=== PATIENT | male | born 1995 | race Caucasian/White ===

== ENCOUNTER → 2017-04-22 | Outpatient (CLI) | payer BC ==
--- NOTE | 2017-04-22 16:00 | CT ---
HISTORY: Gross hematuria Study: CT abdomen and pelvis without contrast Comparison: None Technique: Multiple axial images of the abdomen and pelvis were obtained from the lung bases to the pubic symphy sis without the administration of IV contrast. Sagittal and coronal reformations were provided. Findings: The visualized portions of the lung bases are unremarkable. The liver, spleen, pancreas, kidneys, an d adrenal glands are unremarkable in their CT appearance. The gallbladder is unremarkable in its CT a ppearance. No significant mesenteric lymphadenopathy or stranding can be observed. No free fluid or free air is seen within the abdomen. The appendix is normal. No bowel wall thickening or bowel dila tation is present. The colon is unremarkable. Specifically, there is no diverticulosis noted within the sigmoid colon. The urinary bladder is grossly unremarkable. The bony structures are grossly int act. IMPRESSION: 1. Negative CT of the abdomen and pelvis. Reported By:
== END | disposition home or self-care (01) ==
LOC: RAD 13:12
PROVIDERS: ATTEND Internal Medicine
DX: R31.0 Gross hematuria (principal)
CPT/HCPCS: 74176

== ENCOUNTER 2017-07-10 22:51 | Emergency (ER) | payer BC ==
[2017-07-10 22:56] VITALS: BP 158/88; BMI 25.0
--- NOTE | 2017-07-10 23:46 | RAD ---
Two views of the neck soft tissues Indication: Concern for state in throat Findings: No radiopaque foreign body identified within the prevertebral soft tissues. Hypopharynx dem onstrates no abnormality. The epiglottis is normal. There is no acute osseous abnormality or malalign ment cervical spine. Impression: No radiographic abnormality within the neck soft tissues. Specifically, no radiopaque for eign body identified within the neck. Reported By:
--- NOTE | 2017-07-10 23:48 | DR.GENAD ---
HPI - PCP Primary Care Physician: yamila de leon - HPI Comment HPI Comment: HISTORY BELOW. - Complaint/Symptoms Chief Complaint Doctors Comments: PATIENT FELT PIECE OF STEAK STUCK IN HIS ESOPHAGUS ST DINNER TONIGHT. TRY COUGHING IT OFF, MAY HAVE GONE DOWN WHILE IN HIS ROOM HERE AT THE ED. THROAT SORE. Chief Complaint:: pt states" i think i have some steak hung in my throat" - Nurses notes reviewed Nurses Notes Review: Yes - Source History Provided: Patient - Mode of Arrival Mode of Arrival: Ambulatory - Timing Onset of Chief Complaint: 07/10/17 Came on: Suddenly - Duration Duration: Constant Duration: Hours - Severity Severity: Moderate PMH - PMH Past Medical History: No Past Surgical History: No - Family History History of Family Medical Conditions: No - Social History Does any household member use tobacco: No Alcohol Use: None Do you use any recreational Drugs:: No Lives With: Family Lives Where: Home - infectious screening In the last 2 months have you had wt loss of >10#?: NO Have you had fever, night sweats or hemotysis?: No Have you traveled outside the country in the last 6 months?: No Isolation: Standard ROS - Review of Systems Constitutional: No Symptoms Reported Eyes: No Symptoms Reported ENTM: No Symptoms Reported, Throat Pain (FB ESOPHAGUS) Respiratoy: Non-Productive Cough Cardiovascular: No Symptoms Reported. negative: Chest Pain Gastrointestinal/Abdominal: No Symptoms Reported Genitourinary: No Symptoms Reported Neurological: No Symptoms Reported Musculoskeletal: No Symptoms Reported Integumentary: No Symptoms Reported Hematologic/Lymphatic: No Symptoms Reported Endocrine: No Symptoms Reported All Other Systems: Reviewed and Negative PE - Vital Signs Vitals: Temperature 98.2 F Pulse Rate 75 Respiratory Rate 18 Blood Pressure 158/88 O2 Sat by Pulse Oximetry 96 - General Limitations: No Limitations General Appearance: Alert - Head Head Exam: Normal Inspection - Eyes Eye exam: Normal Appearance - ENT ENT Exam: Normal External Ear Exam External Ear Exam: Normal External Inspection TM/Canal Exam: Bilateral Normal Nose Exam: Normal Nose Exam Mouth Exam: Normal Inspection Throat Exam: Normal Inspection - Neck Neck Exam: Normal Inspection - Chest Chest Inspection: Symmetric Chest Wall Rise - Respiratory Respiratory Exam: Normal Lung Sounds Bilat Respiratory Exam: Bilateral Clear to Auscultation - Cardiovascular Cardiovascular Exam: Regular Rate, Normal Rhythm, Normal Heart Sounds - Abdominal Exam Abdominal Exam: Normal Bowel Sounds, Soft. negative: Tenderness - Extremities Extremities Exam: Normal Inspection - Back Back Exam: Normal Inspection - Neurologic Neurological Exam: Alert, Oriented X3 - Psychiatric Psychiatric Exam: Anxious - Skin Skin Exam: Normal Color MDM - Additional Information Additional Information Obtained From: Family - Differential Diagnosis Differential Diagnosis: FB ESOPHAGUS, DYSPHAGIA Course - Treatment Treatment: SEE ORDERS. - Education/Counseling Education/Counseling: Patient, Family, Education Educated On: Diagnosis, Needs for Follow Up ROR - XRAY XRAY Interpreted by: Radiologist XRAY Findings: REPORT DISCUSS WITH PATIENT AND MOTHER. - Diagnosis Discharge Problem: Esophageal foreign body - Discharge Plan Disposition: 01 HOME, SELF-CARE Condition: Stable - Follow ups/Referrals Follow ups/Referrals: Yamila De Leon [Primary Care Provider] - 3 days - Instructions Instructions: Dysphagia Additional Instructions: RETURN TO ED IF WORSE. YOU HAD FOREIGN BODY IN THE ESOPHAGUS WHICH YOU HAVE PASS ACCORDING TO XRAY DONE TONIGHT. FOLLOW UP WITH YOUR GI DOCTOR.
== END 2017-07-11 00:05 | disposition home or self-care (01) ==
LOC: ER 22:51
DX: T18.108A Unspecified foreign body in esophagus causing other injury, initial encounter (principal)
CPT/HCPCS: 70360; 99282; 99283